=== PATIENT | female | born 1990 | race Caucasian/White ===

== ENCOUNTER 2017-06-10 20:13 | Emergency (ER) | payer OTHER ==
[~2017-06-10] VITALS: Ht 157.5 cm; Wt 63.1 kg
[~2017-06-10 20:13] MED LIST: BACTRIM,SEPT1 TABLET PO; BENTYL20 MG PO; CLONIDINE HCL0.2 MG PO; KEFLEX500 MG PO; LORTAB 5-325 M1 EACH PO; MOTRIN800 MG PO; PYRIDIUM200 MG PO
[2017-06-10] MEDS ORDERED: NAPROXEN500 MG PO (21:46)
[2017-06-10 22:05] VITALS: BP 107/65
== END 2017-06-10 22:06 | disposition home or self-care (01) ==
LOC: EME 20:13
DX: S46.911A Strain of unspecified muscle, fascia and tendon at shoulder and upper arm level, right arm, initial encounter (principal); X50.0XXA Overexertion from strenuous movement or load, initial encounter; Z88.0 Allergy status to penicillin; F17.200 Nicotine dependence, unspecified, uncomplicated
CPT/HCPCS: 73000; 73030; 99281; 99283

== ENCOUNTER 2017-09-24 19:11 | Inpatient (IN) | payer OTHER ==
[~2017-09-24] VITALS: Ht 162.6 cm; Wt 72.2 kg
[~2017-09-24 19:11] MED LIST changes: +NAPROXEN500 MG PO
[2017-09-24 19:34] LABS: BASE EXCESS -13.5 mEq/L (-3 to +3); BICARBONATE 11.3 mEq/L (22-26); CARBOXY HGB 1.6 % (0-5); COMMENTS - BLOOD GASES C+A+; DEVICE VENT; FI02 60 %; MECHANICAL RATE 20 resp/min; METHEMOGLOBIN 1.2 % (0-1.5); MODE SIMV; PCO2 24 mm Hg (35-45); PEEP 5 CM/H20; PO2 300 mm Hg (80-100); SITE LR; TIDAL VOLUME 500 ML; TOTAL RESP RATE 28 resp/min; pH 7.28 (7.35-7.45)
[2017-09-24 19:51] LABS: EOSINOPHIL (%) 0.5 % (0-5); HEMATOCRIT 41.5 % (36.0-46.0); IMMATURE GRANULOCYTE (%) 2.3 % (0.0-0.7); IMMATURE GRANULOCYTE COUNT 0.1 K/uL; INSTRUMENT ABS NEUTROPHIL CT 1.4 K/uL; MCH 34.4 PG (29.0-34.0); MCV 101.2 FL (83-99); MEAN PLAT.VOLUME 10.4 uM^3 (9.5-12.4); MONOCYTE (%) 8.3 % (3-12); MONOCYTE COUNT 0.3 K/uL (0-0.8); NEUTROPHIL (%) 35.4 % (45-76); NEUTROPHIL COUNT 1.4 K/uL (1.8-6.4); PLATELET COUNT 169 K/uL (156-360); RBC DIS.WIDTH-CV 12.5 % (11.8-14.6); RBC DIS.WIDTH-SD 46.2 % (39-53); WHITE BLOOD COUNT 3.9 K/uL (4.1-10.2)
[2017-09-24 19:57] LABS: INTER. NORMALIZED RATIO 0.9; PROTHROMBIN TIME 10.1 SEC (10.2-12.9)
[2017-09-24 20:03] LABS: AMYLASE 196 IU/L (1-118); CHLORIDE 110 mEq/L (99-109); POTASSIUM 3.4 mEq/L (3.7-5.4); SODIUM 144 mEq/L (136-147)
[2017-09-24 20:05] LABS: GLUCOSE 242 mg/dL (70-99)
[2017-09-24 20:06] LABS: ANION GAP 26 MEQ/L (2-14)
[2017-09-24 20:08] LABS: SERUM ETHYL ALCOHOL 323 mg/dL
[2017-09-24 20:09] LABS: GFR ESTIMATE (CALCULATED) > 59 mL/min/
[2017-09-24 20:10] LABS: ADD MIUA? YES; BILIRUBIN NEGATIVE; BLOOD SMALL; COLOR YELLOW ((YELLOW)); GLUCOSE (STRIP) 150; KETONES NEGATIVE; LEUKOCYTES NEGATIVE; NITRITE NEGATIVE; PROTEIN (STRIP) 100; SPECIFIC GRAVITY 1.008 (1.000-1.030); UROBILINOGEN 0.2 MG/DL (0.2-1.0)
[2017-09-24 20:10] LABS: UREA NITROGEN (BUN) 8 mg/dL (9-23)
[2017-09-24 20:12] LABS: TROP-I INTERPRETATION NEGATIVE; TROPONIN-I < 0.01 ng/mL (0.0-0.30)
[2017-09-24 20:12] LABS: CREATINE KINASE 129 IU/L (1-294); LIPASE 59 U/L (1.0-51.0)
[2017-09-24 20:13] LABS: BACTERIA RARE /HPF; EPITHELIAL CELLS NONE SEEN /HPF; MUCUS TRACE /LPF; RED BLOOD CELLS 0-5 /HPF (0-5); UCUL ADDED? NO; WHITE BLOOD CELLS 0-5 /HPF (0-5)
[2017-09-24 20:17] LABS: QUANTITATIVE HCG < 4.0 MIU/ML
[2017-09-24 20:20] LABS: AMPHETAMINE NEGATIVE (500 ng/mL); BARBITURATES NEGATIVE (200 ng/mL); BENZODIAZEPINES NEGATIVE (150 ng/mL); COCAINE NEGATIVE (150 ng/mL); INTERNAL CONTROLS VALID? YES; METHADONE NEGATIVE (200 ng/mL); METHAMPHETAMINE NEGATIVE (500 ng/mL); OPIATES (MORPHINE) PRESUMPTIVE POSITIVE (100 ng/mL); OXYCODONE NEGATIVE (100 ng/mL); PHENCYCLIDINE NEGATIVE (25 ng/mL); PROPOXYPHENE NEGATIVE (300 ng/mL); THC CANNABINOIDS PRESUMPTIVE POSITIVE (50 ng/mL); TRICYCLIC ANTIDEPRESSANTS NEGATIVE (300 ng/mL)
[2017-09-24 20:21] LABS: ADD MEDTOX COMMENT Y
[2017-09-24 22:00] VITALS: BP 154/120
[2017-09-24 22:30] VITALS: BP 154/120
[2017-09-24 23:00] VITALS: BP 154/120
[2017-09-24 23:13] LABS: BASE EXCESS -10.1 mEq/L (-3 to +3); BICARBONATE 17.6 mEq/L (22-26); CARBOXY HGB 1.4 % (0-5); COMMENTS - BLOOD GASES C+; DEVICE VENT; FI02 80 %; METHEMOGLOBIN 1.9 % (0-1.5); MODE SIMV VC+; PCO2 44 mm Hg (35-45); PO2 131 mm Hg (80-100); SITE LR; pH 7.21 (7.35-7.45)
[2017-09-24 23:14] LABS: INSPIRATION TIME 0.7 seconds; MECHANICAL RATE 20 resp/min; PEEP 10 CM/H20; TIDAL VOLUME 500 ML; TOTAL RESP RATE 36 resp/min
[2017-09-24 23:56] LABS: METH RESISTANT S AUREUS PCR NEGATIVE (NEGATIVE)
[2017-09-24 23:58] LABS: PROBE CHECK PASS; SPECIMEN PROCESSING CONTROL PASS
[2017-09-25] VITALS (24 sets, daily range): BP systolic 87–143; BP diastolic 62–103
[2017-09-25 00:34] LABS: POINT-OF-CARE METER ID UU14314082
[2017-09-25 00:41] LABS: PROTHROMBIN TIME 10.8 SEC (10.2-12.9)
[2017-09-25 00:44] LABS: PTT 23.1 SEC (25-37)
[2017-09-25 01:29] LABS: TROP-I INTERPRETATION INDETERMINATE; TROPONIN-I 0.38 ng/mL (0.0-0.30)
[2017-09-25 01:36] LABS: BASOPHIL COUNT 0.1 K/uL (0-0.1); EOSINOPHIL (%) 0.1 % (0-5); HEMATOCRIT 50.1 % (36.0-46.0); IMMATURE GRANULOCYTE (%) 0.4 % (0.0-0.7); IMMATURE GRANULOCYTE COUNT 0.1 K/uL; INSTRUMENT ABS NEUTROPHIL CT 9.8 K/uL; LYMPHOCYTE COUNT 1.9 K/uL (1.0-2.8); MCH 34.1 PG (29.0-34.0); MCHC 33.5 G/DL (30.0-36.0); MCV 101.6 FL (83-99); MEAN PLAT.VOLUME 10.6 uM^3 (9.5-12.4); MONOCYTE (%) 13.8 % (3-12); MONOCYTE COUNT 1.9 K/uL (0-0.8); NEUTROPHIL (%) 71.2 % (45-76); NEUTROPHIL COUNT 9.8 K/uL (1.8-6.4); RBC DIS.WIDTH-CV 12.5 % (11.8-14.6); RBC DIS.WIDTH-SD 46.4 % (39-53); WHITE BLOOD COUNT 13.8 K/uL (4.1-10.2)
[2017-09-25 01:37] LABS: PLATELET COUNT 333 K/uL (156-360); RED BLOOD COUNT 4.93 M/uL (3.80-5.20)
[2017-09-25 02:42] LABS: ANION GAP 22 MEQ/L (2-14); CHLORIDE 104 MEQ/L (99-109); GFR ESTIMATE (CALCULATED) > 59 mL/min/; GLUCOSE 256 mg/dL (70-99); MAGNESIUM 1.9 mg/dl (1.3-2.7); POTASSIUM 3.9 MEQ/L (3.7-5.4); SAMPLE HEMOLYSIS CHECK 3; SAMPLE ICTERIC CHECK 0; SAMPLE LIPEMIA CHECK 1; SODIUM 143 MEQ/L (136-147); UREA NITROGEN (BUN) 9 mg/dL (9-23)
[2017-09-25 04:27] LABS: ALKALINE PHOSPHATASE 72 IU/L (3-129); DIRECT BILIRUBIN 0.1 mg/dL (0.0-0.3); TOTAL BILIRUBIN 0.5 MG/DL (0.0-1.0)
[2017-09-25 05:14] LABS: POINT-OF-CARE METER ID UU13113731
[2017-09-25 05:21] LABS: BASE EXCESS -10.4 mEq/L (-3 to +3); BICARBONATE 16.3 mEq/L (22-26); CARBOXY HGB 1.3 % (0-5); METHEMOGLOBIN 1.6 % (0-1.5); PCO2 38 mm Hg (35-45); PO2 146 mm Hg (80-100); pH 7.24 (7.35-7.45)
[2017-09-25 05:22] LABS: COMMENTS - BLOOD GASES C+; DEVICE VENT; MECHANICAL RATE 20 resp/min; MODE A/C; PEEP 10 CM/H20; SITE RR; TIDAL VOLUME 500 ML; TOTAL RESP RATE 20 resp/min
[2017-09-25 05:23] LABS: FI02 70 %
[2017-09-25 05:26] LABS: EOSINOPHIL (%) 0 % (0-5); HEMATOCRIT 50.5 % (36.0-46.0); IMMATURE GRANULOCYTE (%) 0.1 % (0.0-0.7); INSTRUMENT ABS NEUTROPHIL CT 5.6 K/uL; LYMPHOCYTE COUNT 0.7 K/uL (1.0-2.8); MCH 33.5 PG (29.0-34.0); MCHC 33.7 G/DL (30.0-36.0); MCV 99.6 FL (83-99); MEAN PLAT.VOLUME 9.8 uM^3 (9.5-12.4); MONOCYTE (%) 14.5 % (3-12); MONOCYTE COUNT 1.1 K/uL (0-0.8); NEUTROPHIL (%) 76.3 % (45-76); NEUTROPHIL COUNT 5.6 K/uL (1.8-6.4); PLATELET COUNT 280 K/uL (156-360); RBC DIS.WIDTH-CV 12.4 % (11.8-14.6); RBC DIS.WIDTH-SD 45.3 % (39-53); RED BLOOD COUNT 5.07 M/uL (3.80-5.20); WHITE BLOOD COUNT 7.4 K/uL (4.1-10.2)
[2017-09-25 05:38] LABS: INTER. NORMALIZED RATIO 1.1; PROTHROMBIN TIME 11.6 SEC (10.2-12.9)
[2017-09-25 05:56] LABS: TROP-I INTERPRETATION POSITIVE; TROPONIN-I 1.02 ng/mL (0.0-0.30)
[2017-09-25 07:02] LABS: ALKALINE PHOSPHATASE 56 IU/L (3-129); ANION GAP 24 MEQ/L (2-14); CHLORIDE 104 MEQ/L (99-109); GFR ESTIMATE (CALCULATED) > 59 mL/min/; GLUCOSE 167 mg/dL (70-99); SAMPLE HEMOLYSIS CHECK 0; SAMPLE ICTERIC CHECK 0; SAMPLE LIPEMIA CHECK 0; SODIUM 143 MEQ/L (136-147); TOTAL BILIRUBIN 0.6 MG/DL (0.0-1.0); UREA NITROGEN (BUN) 10 mg/dL (9-23)
[2017-09-25 07:06] LABS: MAGNESIUM 1.3 mg/dl (1.3-2.7); POTASSIUM 2.3 MEQ/L (3.7-5.4)
[2017-09-25 11:47] LABS: BASE EXCESS -1.9 mEq/L (-3 to +3); CARBOXY HGB 1.8 % (0-5); COMMENTS - BLOOD GASES C+; METHEMOGLOBIN 1.3 % (0-1.5); PCO2 21 mm Hg (35-45); PO2 86 mm Hg (80-100); SITE LR; pH 7.54 (7.35-7.45)
[2017-09-25 11:48] LABS: DEVICE VENT; FI02 30 %; MECHANICAL RATE 30 resp/min; MODE ACVC; PEEP 5 CM/H20; TOTAL RESP RATE 30 resp/min
[2017-09-25 11:49] LABS: TIDAL VOLUME 500 ML
[2017-09-25 12:47] LABS: EOSINOPHIL (%) 0 % (0-5); HEMATOCRIT 44.1 % (36.0-46.0); IMMATURE GRANULOCYTE (%) 0.5 % (0.0-0.7); INSTRUMENT ABS NEUTROPHIL CT 4.8 K/uL; LYMPHOCYTE COUNT 0.6 K/uL (1.0-2.8); MCH 34.8 PG (29.0-34.0); MCHC 35.4 G/DL (30.0-36.0); MCV 98.4 FL (83-99); MONOCYTE (%) 13.2 % (3-12); MONOCYTE COUNT 0.8 K/uL (0-0.8); NEUTROPHIL (%) 76.8 % (45-76); NEUTROPHIL COUNT 4.8 K/uL (1.8-6.4); PLATELET COUNT 211 K/uL (156-360); RBC DIS.WIDTH-CV 12.5 % (11.8-14.6); RBC DIS.WIDTH-SD 44.5 % (39-53); RED BLOOD COUNT 4.48 M/uL (3.80-5.20); WHITE BLOOD COUNT 6.3 K/uL (4.1-10.2)
[2017-09-25 12:57] LABS: INTER. NORMALIZED RATIO 1.2; PROTHROMBIN TIME 13.3 SEC (10.2-12.9)
[2017-09-25 13:11] LABS: TROP-I INTERPRETATION POSITIVE
[2017-09-25 13:21] LABS: ANION GAP 17 MEQ/L (2-14); CHLORIDE 103 MEQ/L (99-109); GFR ESTIMATE (CALCULATED) > 59 mL/min/; GLUCOSE 145 mg/dL (70-99); SAMPLE HEMOLYSIS CHECK 0; SAMPLE ICTERIC CHECK 0; SAMPLE LIPEMIA CHECK 0; SODIUM 141 MEQ/L (136-147); UREA NITROGEN (BUN) 16 mg/dL (9-23)
[2017-09-25 13:26] LABS: MAGNESIUM 1.1 mg/dl (1.3-2.7); POTASSIUM 3.9 MEQ/L (3.7-5.4)
[2017-09-25 15:15] LABS: BASE EXCESS -2.8 mEq/L (-3 to +3); BICARBONATE 20.9 mEq/L (22-26); CARBOXY HGB 1.8 % (0-5); COMMENTS - BLOOD GASES C+; DEVICE VENT; FI02 30 %; METHEMOGLOBIN 1.5 % (0-1.5); MODE ACVC; PCO2 33 mm Hg (35-45); PO2 77 mm Hg (80-100); SITE RR; pH 7.41 (7.35-7.45)
[2017-09-25 15:16] LABS: MECHANICAL RATE 18 resp/min; PEEP 5 CM/H20; TOTAL RESP RATE 18 resp/min
[2017-09-25 17:58] LABS: EOSINOPHIL (%) 0 % (0-5); HEMATOCRIT 43.7 % (36.0-46.0); IMMATURE GRANULOCYTE (%) 0.6 % (0.0-0.7); IMMATURE GRANULOCYTE COUNT 0.1 K/uL; INSTRUMENT ABS NEUTROPHIL CT 6.9 K/uL; LYMPHOCYTE COUNT 0.8 K/uL (1.0-2.8); MCHC 34.8 G/DL (30.0-36.0); MCV 97.8 FL (83-99); MONOCYTE (%) 11.9 % (3-12); MONOCYTE COUNT 1.1 K/uL (0-0.8); NEUTROPHIL (%) 78.5 % (45-76); NEUTROPHIL COUNT 6.9 K/uL (1.8-6.4); PLATELET COUNT 216 K/uL (156-360); RBC DIS.WIDTH-CV 12.4 % (11.8-14.6); RBC DIS.WIDTH-SD 44.6 % (39-53); RED BLOOD COUNT 4.47 M/uL (3.80-5.20); WHITE BLOOD COUNT 8.8 K/uL (4.1-10.2)
[2017-09-25 18:03] LABS: INTER. NORMALIZED RATIO 1.1; PROTHROMBIN TIME 12.9 SEC (10.2-12.9)
[2017-09-25 18:11] LABS: ANION GAP 14 MEQ/L (2-14); CHLORIDE 102 MEQ/L (99-109); SAMPLE HEMOLYSIS CHECK 0; SAMPLE ICTERIC CHECK 0; SAMPLE LIPEMIA CHECK 0; SODIUM 136 MEQ/L (136-147)
[2017-09-25 18:16] LABS: GFR ESTIMATE (CALCULATED) > 59 mL/min/; GLUCOSE 123 mg/dL (70-99); UREA NITROGEN (BUN) 16 mg/dL (9-23)
[2017-09-25 18:19] LABS: MAGNESIUM 2.3 mg/dl (1.3-2.7)
[2017-09-25 18:20] LABS: TROP-I INTERPRETATION POSITIVE; TROPONIN-I 0.78 ng/mL (0.0-0.30)
[2017-09-26] VITALS (24 sets, daily range): BP systolic 87–130; BP diastolic 48–93
[2017-09-26 00:45] LABS: POINT-OF-CARE METER ID UU13113731; POINT-OF-CARE USER ID 609231305
[2017-09-26 01:52] LABS: EOSINOPHIL (%) 0 % (0-5); HEMATOCRIT 39.9 % (36.0-46.0); IMMATURE GRANULOCYTE (%) 0.7 % (0.0-0.7); IMMATURE GRANULOCYTE COUNT 0.1 K/uL; INSTRUMENT ABS NEUTROPHIL CT 7.3 K/uL; LYMPHOCYTE COUNT 0.8 K/uL (1.0-2.8); MCH 34.3 PG (29.0-34.0); MCHC 35.6 G/DL (30.0-36.0); MCV 96.4 FL (83-99); MEAN PLAT.VOLUME 10.2 uM^3 (9.5-12.4); MONOCYTE COUNT 0.6 K/uL (0-0.8); NEUTROPHIL (%) 82.7 % (45-76); NEUTROPHIL COUNT 7.3 K/uL (1.8-6.4); PLATELET COUNT 204 K/uL (156-360); RBC DIS.WIDTH-CV 12.3 % (11.8-14.6); RED BLOOD COUNT 4.14 M/uL (3.80-5.20); WHITE BLOOD COUNT 8.8 K/uL (4.1-10.2)
[2017-09-26 02:08] LABS: CHLORIDE 105 mEq/L (99-109); POTASSIUM 3.4 mEq/L (3.7-5.4); SODIUM 138 mEq/L (136-147)
[2017-09-26 02:09] LABS: MAGNESIUM 2.1 mg/dL (1.3-2.7)
[2017-09-26 02:10] LABS: GLUCOSE 131 mg/dL (70-99)
[2017-09-26 02:12] LABS: ANION GAP 14 MEQ/L (2-14); TROP-I INTERPRETATION INDETERMINATE; TROPONIN-I 0.48 ng/mL (0.0-0.30)
[2017-09-26 02:14] LABS: GFR ESTIMATE (CALCULATED) > 59 mL/min/
[2017-09-26 02:15] LABS: INTER. NORMALIZED RATIO 1.2; PROTHROMBIN TIME 13.5 SEC (10.2-12.9)
[2017-09-26 02:15] LABS: UREA NITROGEN (BUN) 16 mg/dL (9-23)
[2017-09-26 05:22] LABS: BASE EXCESS -0.8 mEq/L (-3 to +3); BICARBONATE 21.8 mEq/L (22-26); CARBOXY HGB 1.9 % (0-5); COMMENTS - BLOOD GASES C+; DEVICE VENT; FI02 30 %; MECHANICAL RATE 18 resp/min; METHEMOGLOBIN 1.6 % (0-1.5); MODE A/C; PCO2 30 mm Hg (35-45); PO2 92 mm Hg (80-100); SITE RR; TIDAL VOLUME 500 ML; TOTAL RESP RATE 20 resp/min; pH 7.47 (7.35-7.45)
[2017-09-26 05:23] LABS: PEEP 5 CM/H20
[2017-09-26 07:44] LABS: EOSINOPHIL (%) 0 % (0-5); HEMATOCRIT 39.1 % (36.0-46.0); IMMATURE GRANULOCYTE (%) 0.7 % (0.0-0.7); IMMATURE GRANULOCYTE COUNT 0.1 K/uL; INSTRUMENT ABS NEUTROPHIL CT 7.5 K/uL; LYMPHOCYTE COUNT 0.6 K/uL (1.0-2.8); MCH 34.7 PG (29.0-34.0); MCHC 35.8 G/DL (30.0-36.0); MCV 96.8 FL (83-99); MEAN PLAT.VOLUME 10.4 uM^3 (9.5-12.4); MONOCYTE (%) 8.1 % (3-12); MONOCYTE COUNT 0.7 K/uL (0-0.8); NEUTROPHIL (%) 83.9 % (45-76); NEUTROPHIL COUNT 7.5 K/uL (1.8-6.4); PLATELET COUNT 195 K/uL (156-360); RBC DIS.WIDTH-CV 12.3 % (11.8-14.6); RBC DIS.WIDTH-SD 42.9 % (39-53); RED BLOOD COUNT 4.04 M/uL (3.80-5.20)
[2017-09-26 08:02] LABS: ANION GAP 13 MEQ/L (2-14); CHLORIDE 103 MEQ/L (99-109); GFR ESTIMATE (CALCULATED) > 59 mL/min/; GLUCOSE 119 mg/dL (70-99); POTASSIUM 3.6 MEQ/L (3.7-5.4); SAMPLE HEMOLYSIS CHECK 1; SAMPLE ICTERIC CHECK 0; SAMPLE LIPEMIA CHECK 0; SODIUM 137 MEQ/L (136-147); UREA NITROGEN (BUN) 17 mg/dL (9-23)
[2017-09-26 08:03] LABS: MAGNESIUM 1.9 mg/dl (1.3-2.7)
[2017-09-26 08:05] LABS: TROP-I INTERPRETATION INDETERMINATE; TROPONIN-I 0.44 ng/mL (0.0-0.30)
[2017-09-26 08:06] LABS: INTER. NORMALIZED RATIO 1.1
[2017-09-26 12:43] LABS: EOSINOPHIL (%) 0.1 % (0-5); IMMATURE GRANULOCYTE (%) 0.6 % (0.0-0.7); IMMATURE GRANULOCYTE COUNT 0.1 K/uL; INSTRUMENT ABS NEUTROPHIL CT 7.4 K/uL; LYMPHOCYTE COUNT 0.7 K/uL (1.0-2.8); MCHC 35.3 G/DL (30.0-36.0); MCV 96.4 FL (83-99); MEAN PLAT.VOLUME 9.8 uM^3 (9.5-12.4); MONOCYTE (%) 7.9 % (3-12); MONOCYTE COUNT 0.7 K/uL (0-0.8); NEUTROPHIL (%) 83.8 % (45-76); NEUTROPHIL COUNT 7.4 K/uL (1.8-6.4); PLATELET COUNT 203 K/uL (156-360); RBC DIS.WIDTH-CV 12.3 % (11.8-14.6); RBC DIS.WIDTH-SD 42.5 % (39-53); RED BLOOD COUNT 4.15 M/uL (3.80-5.20); WHITE BLOOD COUNT 8.8 K/uL (4.1-10.2)
[2017-09-26 12:52] LABS: INTER. NORMALIZED RATIO 1.1; PROTHROMBIN TIME 12.8 SEC (10.2-12.9)
[2017-09-26 13:08] LABS: TROP-I INTERPRETATION INDETERMINATE; TROPONIN-I 0.45 ng/mL (0.0-0.30)
[2017-09-26 13:10] LABS: ANION GAP 13 MEQ/L (2-14); CHLORIDE 103 MEQ/L (99-109); GFR ESTIMATE (CALCULATED) > 59 mL/min/; GLUCOSE 120 mg/dL (70-99); MAGNESIUM 2.1 mg/dl (1.3-2.7); POTASSIUM 3.6 MEQ/L (3.7-5.4); SAMPLE HEMOLYSIS CHECK 0; SAMPLE ICTERIC CHECK 0; SAMPLE LIPEMIA CHECK 0; SODIUM 136 MEQ/L (136-147); UREA NITROGEN (BUN) 14 mg/dL (9-23)
[2017-09-26 17:54] LABS: EOSINOPHIL (%) 0.1 % (0-5); HEMATOCRIT 41.9 % (36.0-46.0); IMMATURE GRANULOCYTE (%) 0.6 % (0.0-0.7); IMMATURE GRANULOCYTE COUNT 0.1 K/uL; INSTRUMENT ABS NEUTROPHIL CT 8.4 K/uL; LYMPHOCYTE COUNT 0.6 K/uL (1.0-2.8); MCH 33.6 PG (29.0-34.0); MCHC 34.6 G/DL (30.0-36.0); MCV 97.2 FL (83-99); MEAN PLAT.VOLUME 10.2 uM^3 (9.5-12.4); MONOCYTE (%) 6.5 % (3-12); MONOCYTE COUNT 0.6 K/uL (0-0.8); NEUTROPHIL (%) 86.2 % (45-76); NEUTROPHIL COUNT 8.4 K/uL (1.8-6.4); PLATELET COUNT 226 K/uL (156-360); RBC DIS.WIDTH-CV 12.4 % (11.8-14.6); RBC DIS.WIDTH-SD 44.1 % (39-53); RED BLOOD COUNT 4.31 M/uL (3.80-5.20); WHITE BLOOD COUNT 9.8 K/uL (4.1-10.2)
[2017-09-26 17:59] LABS: INTER. NORMALIZED RATIO 1.1; PROTHROMBIN TIME 12.1 SEC (10.2-12.9)
[2017-09-26 18:07] LABS: ANION GAP 10 MEQ/L (2-14); CHLORIDE 103 MEQ/L (99-109); GFR ESTIMATE (CALCULATED) > 59 mL/min/; GLUCOSE 117 mg/dL (70-99); MAGNESIUM 2.7 mg/dl (1.3-2.7); POTASSIUM 4.3 MEQ/L (3.7-5.4); SAMPLE HEMOLYSIS CHECK 0; SAMPLE ICTERIC CHECK 0; SAMPLE LIPEMIA CHECK 0; SODIUM 133 MEQ/L (136-147); UREA NITROGEN (BUN) 12 mg/dL (9-23)
[2017-09-26 18:12] LABS: TROP-I INTERPRETATION INDETERMINATE; TROPONIN-I 0.44 ng/mL (0.0-0.30)
[2017-09-26 22:40] LABS: ALKALINE PHOSPHATASE 50 IU/L (3-129); DIRECT BILIRUBIN 0.2 mg/dL (0.0-0.3); TOTAL BILIRUBIN 0.6 MG/DL (0.0-1.0)
[2017-09-27] VITALS (23 sets, daily range): BP systolic 96–162; BP diastolic 63–112
[2017-09-27 01:39] LABS: POINT-OF-CARE METER ID UU13113731
[2017-09-27 05:19] LABS: INTER. NORMALIZED RATIO 1.1; PROTHROMBIN TIME 12.5 SEC (10.2-12.9)
[2017-09-27 05:27] LABS: POINT-OF-CARE METER ID UU13113731
[2017-09-27 05:40] LABS: EOSINOPHIL (%) 0 % (0-5); HEMATOCRIT 48.7 % (36.0-46.0); IMMATURE GRANULOCYTE (%) 1.3 % (0.0-0.7); IMMATURE GRANULOCYTE COUNT 0.1 K/uL; INSTRUMENT ABS NEUTROPHIL CT 6.6 K/uL; LYMPHOCYTE COUNT 0.6 K/uL (1.0-2.8); MCH 33.7 PG (29.0-34.0); MCHC 34.1 G/DL (30.0-36.0); MONOCYTE (%) 5.5 % (3-12); MONOCYTE COUNT 0.4 K/uL (0-0.8); NEUTROPHIL (%) 84.9 % (45-76); NEUTROPHIL COUNT 6.6 K/uL (1.8-6.4); RBC DIS.WIDTH-CV 12.4 % (11.8-14.6); RBC DIS.WIDTH-SD 45.6 % (39-53); RED BLOOD COUNT 4.92 M/uL (3.80-5.20); WHITE BLOOD COUNT 7.8 K/uL (4.1-10.2)
[2017-09-27 05:46] LABS: ANION GAP 12 MEQ/L (2-14); CHLORIDE 107 MEQ/L (99-109); DIRECT BILIRUBIN 0.1 mg/dL (0.0-0.3); MAGNESIUM 2.4 mg/dl (1.3-2.7); POTASSIUM 4.7 MEQ/L (3.7-5.4); SAMPLE HEMOLYSIS CHECK 0; SAMPLE ICTERIC CHECK 0; SAMPLE LIPEMIA CHECK 0; SODIUM 139 MEQ/L (136-147); TOTAL BILIRUBIN 0.6 MG/DL (0.0-1.0)
[2017-09-27 05:48] LABS: ALKALINE PHOSPHATASE 52 IU/L (3-129); GFR ESTIMATE (CALCULATED) > 59 mL/min/; GLUCOSE 119 mg/dL (70-99); UREA NITROGEN (BUN) 15 mg/dL (9-23)
[2017-09-27 05:50] LABS: TROP-I INTERPRETATION INDETERMINATE; TROPONIN-I 0.33 ng/mL (0.0-0.30)
[2017-09-27 05:53] LABS: MEAN PLAT.VOLUME 10.5 uM^3 (9.5-12.4); PLAT.SUFFICIENCY ADEQUATE
[2017-09-27 05:57] LABS: PLATELET COUNT 156 K/uL (156-360)
[2017-09-27 13:10] LABS: HEMATOCRIT 40.3 % (36.0-46.0); MCHC 34.7 G/DL (30.0-36.0); MCV 100.8 FL (83-99); MEAN PLAT.VOLUME 10.9 uM^3 (9.5-12.4); PLATELET COUNT 183 K/uL (156-360); RBC DIS.WIDTH-CV 12.6 % (11.8-14.6); RBC DIS.WIDTH-SD 46.1 % (39-53); WHITE BLOOD COUNT 6.9 K/uL (4.1-10.2)
[2017-09-27 13:23] LABS: TROP-I INTERPRETATION NEGATIVE; TROPONIN-I 0.28 ng/mL (0.0-0.30)
[2017-09-27 13:29] LABS: ANION GAP 11 MEQ/L (2-14); CHLORIDE 107 MEQ/L (99-109); GFR ESTIMATE (CALCULATED) > 59 mL/min/; GLUCOSE 109 mg/dL (70-99); MAGNESIUM 2.3 mg/dl (1.3-2.7); POTASSIUM 4.1 MEQ/L (3.7-5.4); SAMPLE HEMOLYSIS CHECK 0; SAMPLE ICTERIC CHECK 0; SAMPLE LIPEMIA CHECK 0; SODIUM 139 MEQ/L (136-147); UREA NITROGEN (BUN) 16 mg/dL (9-23)
[2017-09-27 13:33] LABS: EOSINOPHIL (%) 0.1 % (0-5); IMMATURE GRANULOCYTE COUNT 0.1 K/uL; INSTRUMENT ABS NEUTROPHIL CT 5.8 K/uL; LYMPHOCYTE COUNT 0.6 K/uL (1.0-2.8); MONOCYTE (%) 4.1 % (3-12); MONOCYTE COUNT 0.3 K/uL (0-0.8); NEUTROPHIL (%) 84.5 % (45-76); NEUTROPHIL COUNT 5.8 K/uL (1.8-6.4)
[2017-09-28] VITALS (8 sets, daily range): BP systolic 104–143; BP diastolic 74–102
== END 2017-09-28 19:10 | DRG 917 ==
LOC: EME 19:11 → 4WEST 20:20 → EDOF 20:20 → ENRESERV 20:26 → 4WEST 22:03 → ENRESERV 09-28 05:23 → CANRESERV 09-28 05:23 → 4WEST 09-28 05:28 → ENRESERV 09-28 13:14 → 5EAST 09-28 19:07
PROVIDERS: Emergency Medicine; Internal Medicine Critical Care Medicine
PROC: 05HQ33Z Insertion of Infusion Device into Left External Jugular Vein, Percutaneous Approach (ICD-10-PCS; principal; 2017-09-24)
PROC: 0BH17EZ Insertion of Endotracheal Airway into Trachea, Via Natural or Artificial Opening (ICD-10-PCS; principal; 2017-09-24)
PROC: 5A1945Z Respiratory Ventilation, 24-96 Consecutive Hours (ICD-10-PCS; principal; 2017-09-24)
PROC: 5A2204Z Restoration of Cardiac Rhythm, Single (ICD-10-PCS; principal; 2017-09-24)
DX: T40.1X1A Poisoning by heroin, accidental (unintentional), initial encounter (principal); Z51.5 Encounter for palliative care; E87.2 Acidosis; G93.1 Anoxic brain damage, not elsewhere classified; I47.2 Ventricular tachycardia; F17.200 Nicotine dependence, unspecified, uncomplicated; I46.9 Cardiac arrest, cause unspecified; J96.01 Acute respiratory failure with hypoxia; F11.10 Opioid abuse, uncomplicated; F12.90 Cannabis use, unspecified, uncomplicated; R56.9 Unspecified convulsions; R68.0 Hypothermia, not associated with low environmental temperature; R40.20 Unspecified coma; Z66 Do not resuscitate
CPT/HCPCS: 36600; 70450; 70551; 71010; 80048; 80048 91; 80053; 80076; 81003; 82150; 82330; 82550; 82803; 82948; 83605; 83690; 83735; 84100; 84484; 84702; 84999; 85025; 85025 91; 85610; 85730; 86850; 86900; 86901; 87040; 87070; 87205; 87641; 93005; 94002; 94003; 95819; 99281; 99285; G0480; J0282; J1650; J1815; J1940; J1953; J2060; J2270; J2310; J2704; J3010; J3475; J3480; J7030; J7040; J7050; S0028